=== PATIENT | male | born 1965 | race Caucasian/White ===

== ENCOUNTER 2017-01-01 17:32 | Emergency (ER) | payer SELFPAY ==
[2017-01-01] MEDS ORDERED: 0.9 % SODIUM CHLORIDE 1,000 ML BAG IV ONE (17:40)
[2017-01-01] MEDS ORDERED: MORPHINE SULFATE 5 MG/ML PFS IVP ONE ×2 (17:40→19:02)
--- NOTE | 2017-01-01 17:50 | Emergency Department Record ---
History of Present Illness <Vivi Deng - Last Filed: 01/01/17 20:33> - General Source: Patient, Family Mode of Arrival: Ambulatory Limitations: No limitations - History of Present Illness Initial Comments: 51 yo male presents with a fall of just a few feet but he landed on a ladder he was working out and rocks. He was working outside and the ladder twisted causing him to fall on the ladder. He has pain over the right side from the ribs to the flank area. 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 Place Fall Occurred: Work Loss of Consciousness: None Prolonged Down Time?: No Symptoms Prior to Fall: None Location: Chest, Back, Abdomen Quality: Aching Associated Symptoms: Denies - [place] Coma Scale Eye Response: (4) Open spontaneously Motor Response: (6) Obeys commands Verbal Response: (5) Oriented [place] Total: 15 <JOSÉ LUIS WOOD - Last Filed: 01/02/17 07:54> - General Chief Complaint: Fall Injury Stated Complaint: FELL OFF LADDER Time Seen by Provider: 01/01/17 17:37 - Related Data Previous Rx's Medication Instructions Recorded Hydrocodone/Acetaminophen [[place] 1 each PO Q6H #20 tablet 01/01/17 5-325 Tablet] Lidocaine Patch [Lidoderm] 1 ea TOP Q12H #10 patch 01/01/17 Allergies Allergy/AdvReac Type Severity Reaction Status Date / Time No Known Drug Allergies Allergy Verified 01/01/17 17:45 Review of Systems Constitutional: Denies: Chills, Fever, Weakness Eyes: Denies: Eye discharge ENT: Denies: Congestion, Throat pain Respiratory: Reports: Dyspnea. Denies: Cough, Hemoptysis, Stridor, Wheezes Cardiovascular: Denies: Chest pain (rib pains), Palpitations, Syncope Endocrine: Denies: Fatigue Gastrointestinal: Reports: Abdominal pain (right flank). Denies: Diarrhea, Nausea, Vomiting Genitourinary: Denies: Dysuria, Frequency, Hematuria Musculoskeletal: Reports: Back pain, Myalgia. Denies: Arthralgia, Joint swelling, Neck pain Skin: Reports: As per HPI, Bruising Neurological: Denies: Confusion, Headache, Numbness, Tingling, Tremors, Vertigo , Weakness Psychiatric: Denies: Anxiety Hematological/Lymphatic: Denies: Blood Clots, Easy bleeding, Easy bruising, Swollen glands <JOSÉ LUIS WOOD - Last Filed: 01/02/17 07:54> Physical Exam - General General Appearance: Alert, Oriented x3, Cooperative, No acute distress Limitations: No limitations - Head Head exam: Atraumatic, Normocephalic, Normal inspection - Eye Eye exam: Normal appearance, PERRL. negative: Conjunctival injection, Periorbital swelling - ENT ENT exam: Normal exam, Mucous membranes moist, Normal external ear exam, Normal orophraynx Ear exam: Normal external inspection. negative: External canal tenderness Nasal Exam: Normal inspection. negative: Discharge, Sinus tenderness Mouth exam: Normal external inspection, Tongue normal Teeth exam: Normal inspection. negative: Dental caries Throat exam: Normal inspection. negative: Tonsillar erythema, Tonsillar exudate - Neck Neck exam: Normal inspection, Full ROM. negative: Tenderness - Respiratory Respiratory exam: Chest wall tenderness (right lateral ribs tender to palpation) , Decreased breath sounds (due to splinting) - Cardiovascular Cardiovascular Exam: Regular rate, Normal rhythm, Normal heart sounds - GI/Abdominal GI/Abdominal exam: Soft, Normal bowel sounds. negative: Tenderness - Rectal Rectal exam: Deferred - exam: Deferred - Extremities Extremities exam: Normal inspection, Full ROM, Normal capillary refill. negative: Calf tenderness, Joint swelling, Pedal edema, Tenderness - Back Back exam: Reports: CVA tenderness (R), Muscle spasm, Paraspinal tenderness, Tenderness. Denies: Normal inspection (long abrastion right later ribs to right flank), CVA tenderness (L), Full ROM, Vertebral tenderness - Neurological Neurological exam: Alert, Normal gait, Oriented X3 - Psychiatric Psychiatric exam: Normal affect, Normal mood. negative: Agitated, Anxious - Skin Skin exam: Abrasion, Dry, Intact, Normal color, Warm <JOSÉ LUIS WOOD - Last Filed: 01/02/17 07:54> Course Vital Signs 01/01/17 01/01/17 01/01/17 17:33 19:30 19:48 Temperature 98.2 F Pulse Rate 63 76 Pulse Rate [ 79 Pulse Ox Probe] Respiratory 20 18 18 Rate Blood Pressure 122/82 Blood Pressure 132/94 [Left Arm] Blood Pressure [Right Arm] Pulse Ox 98 96 97 01/01/17 20:32 Temperature Pulse Rate Pulse Rate [ 74 Pulse Ox Probe] Respiratory 20 Rate Blood Pressure Blood Pressure [Left Arm] Blood Pressure 113/85 [Right Arm] Pulse Ox 97 - Reevaluation(s) Reevaluation #4: 01/01/17 20:36 pt prefers to go home <Vivi Deng - Last Filed: 01/01/17 20:33> - Reevaluation(s) Reevaluation #1: The vitals were reviewed No acute changes. No hypoxia. Labs, CT scan ordered. 01/01/17 17:45 Reevaluation #2: The labs were reviewed WBC 15 otherwise no acute changes on the CBC, CMP 01/01/17 18:15 01/01/17 18:41 UA is negative Reevaluation #3: The patient is 97% on room air Awaiting CT RT to teach IS 01/01/17 19:27 01/01/17 19:30 The case was signed out to Dr Deng for review of CT results and final disposition of the patient The patient has controlled pain Turn over was performed at the bedside <JOSÉ LUIS WOOD - Last Filed: 01/02/17 07:54> Medical Decision Making - Lab Data Result diagrams: 01/01/17 17:45 01/01/17 17:45 Lab Results 01/01/17 01/01/17 01/01/17 Range/Units 17:45 17:45 18:15 WBC 15.5 H (4.2-12.2) K/uL RBC 4.70 (4.40-5.70) M/uL Hgb 15.1 (14.0-18.0) gm/dl Hct 44.1 (42.0-52.0) % MCV 93.8 (81-97) fl MCH 32.1 (27-33) pg MCHC 34.2 (32-36) g/dl RDW 13.2 (11.5-14.5) % Plt Count 335 (130-400) K/uL MPV 9.0 (7.4-10.4) fl Neutrophils % 77.0 (47-80) % Eosinophils % Not Reportable Basophils % Not Reportable Lymphocytes 18.0 (16-45) % Monocytes 4.0 (0-9) % Platelet Estimate Normal (NORMAL) RBC Morphology Normal Eosinophil Count 1.0 (0-6) % Sodium 139 (136-145) mmol/L Potassium 4.6 (3.5-5.1) mmol/L Chloride 101 (98-107) mmol/L Carbon Dioxide 27.0 (22-30) mmol/L Anion Gap 11.0 (7-16) BUN 15 (9-20) mg/dL Creatinine 0.9 (0.66-1.25) mg/dL Estimated GFR > 60 ml/min Random Glucose 86 (70-110) mg/dL Lactic Acid 1.3 (0.7-2.1) mmol/L Calcium 9.4 (8.5-10.1) mg/dL Total Bilirubin 1.20 (0.2-1.3) mg/dL AST 26 (17-59) U/L ALT 21 (21-72) U/L Alkaline Phosphatase 57 (38-126) U/L Total Protein 7.9 (6.3-8.2) gm/dL Albumin 4.6 (3.5-5.0) gm/dL Globulin 3.3 (1.4-4.8) gm/dL Albumin/Globulin Ratio 1.4 (1.1-1.8) Urine Color Yellow Urine Appearance Clear Urine pH 8.5 (5.0-8.0) Ur Specific [place] 1.015 (1.002-1.030) Urine Protein Negative (NEGATIVE) Urine Glucose (UA) Negative (NEGATIVE) Urine Ketones Negative (NEGATIVE) Urine Blood Negative (NEGATIVE) Urine Nitrite Negative (NEGATIVE) Urine Bilirubin Negative (NEGATIVE) Urine Urobilinogen 1.0 (0.20 - 1.00) E.U./dL Ur Leukocyte Esterase Negative (NEGATIVE) <Vivi Deng - Last Filed: 01/01/17 20:33> - Lab Data Result diagrams: 01/01/17 17:45 01/01/17 17:45 <JOSÉ LUIS WOOD - Last Filed: 01/02/17 07:54> Disposition <Vivi Deng - Last Filed: 01/01/17 20:33> <JOSÉ LUIS WOOD - Last Filed: 01/02/17 07:54> Clinical Impression: Contusion of rib on right side Qualifiers: Encounter type: initial encounter Qualified Code(s): S20.211A - Contusion of right front wall of thorax, initial encounter Rib fracture Qualifiers: Encounter type: initial encounter Rib fracture type: multiple ribs Fracture type: closed Laterality: right Qualified Code(s): S22.41XA - Multiple fractures of ribs, right side, initial encounter for closed fracture Disposition: Home, Self-Care Instructions: Rib Fracture (ED), Rib Contusion (ED) Additional Instructions: Rest, avoid lifting or activity that increases your pain Prescriptions: Hydrocodone/Acetaminophen [[place] 5-325 Tablet] 1 each PO Q6H #20 tablet Lidocaine Patch [Lidoderm] 1 ea TOP Q12H #10 patch Forms: Patient Portal Access
[2017-01-01 17:55] LABS: HEMATOCRIT 44.1 % (42.0-52.0); HEMOGLOBIN 15.1 gm/dl (14.0-18.0); MEAN CELL VOLUME 93.8 fl (81-97); MEAN CORPUSCULAR HEMOGLOBIN 32.1 pg (27-33); MEAN CORPUSCULAR HGB CONC 34.2 g/dl (32-36); PLATELET COUNT 335 K/uL (130-400); RED CELL DISTRIBUTION WIDTH 13.2 % (11.5-14.5); WHITE BLOOD COUNT W/O DIFF 15.5 K/uL (4.2-12.2)
[2017-01-01 18:03] LABS: PLATELET ESTIMATE NORMAL (NORMAL)
[2017-01-01 18:07] LABS: LACTIC ACID 1.3 mmol/L (0.7-2.1)
[2017-01-01 18:08] LABS: BLOOD UREA NITROGEN 15 mg/dL (9-20); CREATININE 0.9 mg/dL (0.66-1.25); EST GLOMERULAR FILTRATION RATE > 60 ml/min; GLUCOSE,RANDOM 86 mg/dL (70-110); TOTAL PROTEIN 7.9 gm/dL (6.3-8.2)
[2017-01-01 18:09] LABS: ALB/GLOB RATIO 1.4 (1.1-1.8); ALBUMIN 4.6 gm/dL (3.5-5.0); ALKALINE PHOSPHATASE 57 U/L (38-126); ALT/SGPT 21 U/L (21-72); AST/SGOT 26 U/L (17-59)
[2017-01-01 18:21] LABS: URINE APPEARANCE CLEAR; URINE BILIRUBIN NEGATIVE (NEGATIVE); URINE BLOOD NEGATIVE (NEGATIVE); URINE COLOR YELLOW; URINE GLUCOSE (UA) NEGATIVE (NEGATIVE); URINE KETONE NEGATIVE (NEGATIVE); URINE LEUKOCYTE ESTERASE NEGATIVE (NEGATIVE); URINE NITRITE NEGATIVE (NEGATIVE); URINE PROTEIN NEGATIVE (NEGATIVE)
[2017-01-01] MEDS ORDERED: LIDOCAINE 5% PATCH TOP ONE (19:25)
--- NOTE | 2017-01-02 08:58 | CT SCAN REPORT ---
EXAM: CT OF THE ABDOMEN AND PELVIS HISTORY: SHARP RIGHT SIDED RIB PAIN, FELL FROM A LADDER. TECHNIQUE: CT of the abdomen and pelvis was performed following intravenous contrast administration and oral contrast administration. 100 ml of Omnipaque 300 contrast were used for this examination. FINDINGS: There is a nondisplaced fracture of the posterior right tenth rib. No other rib fracture seen. The liver contains at least four or five tiny hypodense lesions. These are too small to definitively assess, but probably represents cysts. The largest of these measures about 6 mm in size. The spleen is unremarkable. There is no pancreatic mass or inflammatory change. The bile ducts are not dilated. There is probably a small calcified gallstone within the gallbladder. The gallbladder is otherwise unremarkable. There is no adrenal lesion seen. There is bilateral renal function. No renal mass or hydronephrosis. No aortic aneurysm. No periaortic mass or adenopathy. There are no dilated bowel loops. No pelvic mass, abscess, or adenopathy. No free air or free fluid. The appendix is unremarkable. No acute fracture or acute osseous abnormality identified. There is bilateral spondylolysis at L5 with mild anterior spondylolisthesis of L5 on S1. IMPRESSION: 1. THERE IS A NONDISPLACED FRACTURE OF THE POSTERIOR RIGHT TENTH RIB. NO OTHER ACUTE FRACTURE IS SEEN. 2. BILATERAL SPONDYLOLYSIS AT L5 WITH MILD ANTERIOR SPONDYLOLISTHESIS OF L5 ON S1. 3. SEVERAL TINY LIVER LESIONS ARE PRESENT LIKELY REPRESENTING CYSTS, BUT TOO SMALL TO DEFINITIVELY ASSESS. FOLLOW-UP CT IN ABOUT SIX MONTHS TIME COULD BE PERFORMED. 4. OTHER FINDINGS ABOVE. 5. PROBABLE SMALL GALLSTONE WITHIN THE GALLBLADDER. ULTRASOUND COULD BE PERFORMED FOR ITS FURTHER ASSESSMENT. JOB NUMBER: [id number] AND [id number] [facility]
--- NOTE | 2017-01-02 09:05 | CT SCAN REPORT ---
EXAM: CT OF THE THORAX HISTORY: PATIENT FELL OFF A LADDER, RIGHT SIDED PAIN. TECHNIQUE: CT of the thorax was performed following intravenous contrast administration. 100 ml of Omnipaque 300 contrast was used for this examination. Comparison: None. FINDINGS: There is a fracture of the posterior right tenth rib. This is nondisplaced. No other rib fracture identified. There is no pneumothorax seen. No mediastinal hematoma. No aortic aneurysm or aortic dissection. No enlarged mediastinal or hilar mass or adenopathy. There is no pleural or pericardial effusion. No area of lung consolidation. No lung mass or lung nodule. There is a bleb identified in the medial upper right thorax. There are also likely nondisplaced fractures of the lateral right eighth and ninth ribs. IMPRESSION: 1. THERE IS A NONDISPLACED FRACTURE OF THE RIGHT TENTH RIB. THERE ARE ALSO SUBTLE NONDISPLACED FRACTURE OF THE RIGHT EIGHTH AND NINTH RIBS. THERE IS NO PNEUMOTHORAX IDENTIFIED. THE UNDERLYING LUNGS ARE CLEAR. 2. THERE IS AN INCIDENTAL BLEB IN THE UPPER MEDIAL RIGHT THORAX. 3. OTHERWISE UNREMARKABLE. JOB NUMBER: [id number] [facility]
--- NOTE | 2017-01-02 09:08 | CT SCAN REPORT ---
EXAM: HEAD CT HISTORY: FELL FROM A LADDER. TECHNIQUE: Noncontrast head CT was obtained. Comparison: None. FINDINGS: The ventricles and subarachnoid spaces are unremarkable. There is no mass or mass effect. No intra or extraaxial hemorrhage. No CT evidence for large acute territorial infarct. No fracture or acute osseous abnormality identified. The sinuses are clear. IMPRESSION: UNREMARKABLE HEAD CT. JOB NUMBER: [id number] [facility]
--- NOTE | 2017-01-02 09:12 | CT SCAN REPORT ---
EXAM: CT OF THE CERVICAL SPINE HISTORY: FELL FROM A LADDER, PAIN. TECHNIQUE: CT of the cervical spine was performed without contrast. Comparison: None. FINDINGS: No fracture or acute osseous abnormality. There is disk space narrowing throughout the cervical spine most pronounced at C3-C4, C4-C5, C5-C6, and C6-C7. There are degenerative end plate spurs at each of these levels. There is uncovertebral spurring present at several levels in the cervical spine. There is no soft tissue swelling. The dens is unremarkable. IMPRESSION: 1. NO FRACTURE OR ACUTE OSSEOUS ABNORMALITY IDENTIFIED. 2. DIFFUSE ARTHRITIC CHANGES IN THE CERVICAL SPINE. JOB NUMBER: [id number] [facility]
== END 2017-01-01 20:41 | disposition home or self-care (01) ==
LOC: ER 17:32
DX: S22.41XA Multiple fractures of ribs, right side, initial encounter for closed fracture (principal); S20.211A Contusion of right front wall of thorax, initial encounter; W11.XXXA Fall on and from ladder, initial encounter; Y99.0 Civilian activity done for income or pay
CPT/HCPCS: 70450; 71260; 72125; 74177; 80053; 81003; 83605; 85027; 94010; 96374; 96376; 99284; J7030